=== PATIENT | male | born 2000 | race Caucasian/White ===

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

== ENCOUNTER 2019-02-07 18:19 | Emergency (ER) | payer OTHER ==
[~2019-02-07] VITALS: Ht 165.1 cm; Wt 73.0 kg
[2019-02-07 18:23] VITALS: BP 137/85; Ht 165.1 cm; Wt 73.0 kg
[2019-02-07 21:05] LABS: AMPHETAMINE QUAL UR NONE DETECTED (See below)
== END 2019-02-07 22:20 | disposition home or self-care (01) ==
LOC: ED 18:19
PROVIDERS: Emergency Medicine
DX: R51 Headache (principal); R20.2 Paresthesia of skin; H92.01 Otalgia, right ear